=== PATIENT | female | born 2005 | race Caucasian/White ===

== ENCOUNTER 2023-09-08 08:15 | Outpatient (CLI) | payer OTHER, SELFPAY ==
--- NOTE | ~2023-09-08 | US_ITS ---
EXAMINATION: US soft tissue head and neck DATE: 09/08/2023 08:31 INDICATION: Posterior cervical lymphadenopathy TECHNIQUE: Multiple grayscale and Doppler ultrasound images of the region of the palpable abnormality of the posterior left neck were obtained. COMPARISON: None FINDINGS/IMPRESSION: 6 x 3 x 6 mm ovoid hypoechoic nodule in the superficial subcutaneous tissues at the region of concern . This could represent either a small lymph node or lipoma. No pathologically enlarged lymphadenopath y or other abnormal masses or fluid collections identified. Reviewed, dictated and finalized at location A.
== END 2023-09-08 08:16 ==
PROVIDERS: PCP Student in an Organized Health Care Education/Training Program; Visit Provider Student in an Organized Health Care Education/Training Program
DX: R59.0 Localized enlarged lymph nodes (principal)
CPT/HCPCS: 76536